=== PATIENT | female | born 1965 | race Caucasian/White ===

== ENCOUNTER 2017-02-04 13:00 | Outpatient (CLI) | payer SELFPAY | END 2017-02-04 13:01 | disposition home or self-care (01) | LOC: BICMRI 13:00 | PROVIDERS: ATTEND Orthopaedic Surgery | DX: M47.892 Other spondylosis, cervical region (principal); M54.2 Cervicalgia | CPT/HCPCS: 72141 ==

== ENCOUNTER 2018-02-22 09:27 | Emergency (ER) | payer BC ==
[2018-02-22 10:03] LABS: Bilirubin Negative (Negative); Blood, Urine Negative (Negative); Clarity CLEAR (Clear); Glucose, Urine (Dipstick) Negative (Negative); Leukocyte Negative (Negative); Nitrite Negative (Negative); Protein, Urine (Dipstick) Negative (Neg-Trace); Specific Gravity, Urine 1.012 (1.002-1.036); Urobilinogen 0.2 mg/dL (0.2-1.0)
[2018-02-22 10:27] LABS: #Basophils 0.1 thou/uL (0.0-0.2); #Eosinphils 0.3 thou/uL (0.0-0.7); #Lymphocytes 2.8 thou/uL (1.20-3.40); #Monocytes 0.4 thou/uL (0.11-0.59); #Neutrophils 4.4 thou/uL (1.40-6.50); %Basophils 0.7 % (0.0-1.0); %Eosinophils 3.3 % (0.0-10.0); %Lymphocytes 35.2 % (21.0-51.0); %Monocytes 5.4 % (0.0-10.0); %Neutrophils 55.3 % (42.0-75.0); Hemoglobin 15.8 g/dL (12.0-16.0); Mean Corpuscular HGB CONC 35.2 g/dL (32.0-36.0); Mean Corpuscular Hemoglobin 32.7 pg (27.0-31.0); Mean Corpuscular Volume 92.9 fL (78.0-98.0); Mean Platelet Volume 6.5 fL (7.4-10.4); Platelet Count 316 thou/uL (130-400); RBC Distribution Width 11.6 % (11.5-14.5); Red Blood Cell (RBC) Count 4.84 mill/uL (4.20-5.40); White Blood Cell (WBC) Count 7.9 thou/uL (4.8-10.8)
[2018-02-22] MEDS ORDERED: Ketorolac Tromethamine 30 MG/ML VIAL ONE (10:37)
[2018-02-22] MEDS ORDERED: Ondansetron PF 4 MG/2 ML Vial ONE (10:37)
[2018-02-22 10:48] LABS: ALT (SGPT) 17 U/L (8-55); AST (SGOT) 19 U/L (5-34); Albumin 4.2 g/dL (3.5-5.0); Alkaline Phosphatase 62 U/L (40-150); Anion Gap 13 mmol/L (10-20); BUN (Urea Nitrogen) 16 mg/dL (7.0-18.7); Bilirubin, Total 0.4 mg/dL (0.2-1.2); Calc. Creatinine Clearance 0 mL/min (70-130); Calcium 8.9 mg/dL (7.8-10.44); Carbon Dioxide 22 mmol/L (22-29); Chloride 109 mmol/L (98-107); Estimated GFR-MDRD 73; Globulin 2.7 g/dL (2.4-3.5); Glucose 84 mg/dL (70-105); Lipase 73 U/L (8-78); Protein, Total 6.9 g/dL (6.0-8.3); Sodium 140 mmol/L (136-145)
[2018-02-22 11:15] LABS: Pregnancy Test - Urine (BHCG) Negative (Negative)
[2018-02-22 11:16] LABS: Pregu Control Background? CLEAR/WHITE (CLR/WHITE); Pregu Control Bar Appear? YES (CONTROL BAR); Specific Gravity 1.012 (1.002-1.036)
--- NOTE | 2018-02-22 12:10 | CT ---
ABDOMEN AND PELVIC CT SCAN WITH IV CONTRAST: History: 52-year-old female with bilateral flank pain and left lower quadrant tenderness for five days. FINDINGS: The lung bases are clear. Post op changes involving the stomach, evidence for prior bariatric surgery . Status post cholecystectomy. Liver, pancreas, spleen, adrenal glands are unremarkable. No evidence for renal calculus or acute obstruction. Very small fat containing umbilical hernia. Normal appear ing appendix. IMPRESSION: No renal calculus or obstruction. Normal appearing appendix. No evidence for other significant acu te process in the abdomen or pelvis. POS: [facility]
== END 2018-02-22 12:38 | disposition home or self-care (01) ==
LOC: ERS 09:27
DX: R10.9 Unspecified abdominal pain (principal); E03.9 Hypothyroidism, unspecified; Z79.899 Other long term (current) drug therapy
CPT/HCPCS: 36415; 74177; 80053; 81003; 81025; 83690; 85025; 96361; 96374; 96375; J1885; J2405

== ENCOUNTER 2021-10-19 07:47 | Outpatient (CLI) | payer OTHER ==
[2021-10-19 09:56] LABS: #Basophils 0.1 10x3/uL (0.0-0.2); #Eosinphils 0.3 10x3/uL (0.0-0.5); #Monocytes 0.4 10x3/uL (0.0-1.1); #Neutrophils 2.8 10x3/uL (1.5-8.4); %Basophils 0.8 % (0.0-2.0); %Eosinophils 5.1 % (0.0-6.0); %Lymphocytes 38.9 % (18.0-47.0); %Monocytes 6.9 % (0.0-10.0); Hemoglobin 16.7 g/dL (12.0-15.5); Mean Corpuscular HGB CONC 35.2 g/dL (32.0-36.0); Mean Corpuscular Hemoglobin 33.2 pg (27.0-33.0); Mean Corpuscular Volume 94.4 fl (81.6-98.3); Mean Platelet Volume 9.6 fl (7.4-10.4); Platelet Count 296 10x3/uL (150-450); RBC Distribution Width 12.1 % (11.5-14.5); Red Blood Cell (RBC) Count 5.03 10x6/uL (3.90-5.03); White Blood Cell (WBC) Count 5.9 10x3/uL (3.5-10.5)
[2021-10-19 10:24] LABS: Anion Gap 14 mmol/L (10-20); BUN (Urea Nitrogen) 13 mg/dL (9.8-20.1); Calc. Creatinine Clearance 0 mL/min (70-130); Calcium 9.3 mg/dL (7.8-10.44); Carbon Dioxide 24 mmol/L (22-29); Chloride 108 mmol/L (98-107); Estimated GFR 70; Glucose 89 mg/dL (70-105); Potassium 4.4 mmol/L (3.5-5.1); Sodium 142 mmol/L (136-145)
== END 2021-10-19 07:48 | disposition home or self-care (01) ==
LOC: LABBT 07:47
PROVIDERS: ATTEND Surgery
DX: Z01.812 Encounter for preprocedural laboratory examination (principal); K43.2 Incisional hernia without obstruction or gangrene; Z20.822 Contact with and (suspected) exposure to COVID-19
CPT/HCPCS: 80048; 85025; 87811

== ENCOUNTER 2021-10-22 06:09 | Day surgery (SDC) | payer OTHER ==
[2021-10-20 13:24] VITALS: BMI 32.8
[2021-10-22] MEDS ORDERED: Bupivacaine/Epinephrine 0.25% 30 ML VIAL ONE (06:41)
[2021-10-22] MEDS ORDERED: Midazolam HCl 2 mg/2 ml Vial ONE (07:07)
[2021-10-22] MEDS ORDERED: Famotidine/PF 20 mg/2ml Vial ONE (07:07)
[2021-10-22] MEDS ORDERED: CEFAZOLIN 2 GM VIAL ONE (07:26)
[2021-10-22] MEDS ORDERED: fentaNYL Citrate/PF 100 MCG/2 ML SYRINGE ONE (07:26)
[2021-10-22] MEDS ORDERED: Sodium Chloride 0.9% 100 ML ONE (07:26)
[2021-10-22] MEDS ORDERED: SUGAMMADEX SODIUM 200 MG/2 ML VIAL ONE (07:26)
[2021-10-22] MEDS ORDERED: Ketorolac Tromethamine 30 MG/ML VIAL ONE (07:47)
[2021-10-22] MEDS ORDERED: Dexamethasone 20 MG/5 ML VIAL ONE (07:47)
[2021-10-22] MEDS ORDERED: Rocuronium Bromide 10 MG/ML (10ML VIAL) ONE (07:47)
[2021-10-22] MEDS ORDERED: Lidocaine 1% MPF 2 ML VIAL ONE (07:47)
[2021-10-22] MEDS ORDERED: PROPOFOL 200 MG/20 ML VIAL ONE (07:47)
[2021-10-22] MEDS ORDERED: Ondansetron PF 4 MG/2 ML Vial ONE (07:47)
[2021-10-22] MEDS ORDERED: Fentanyl 100 MCG/2 ML VIAL ONE ×3 (09:12→09:53)
[2021-10-22] MEDS ORDERED: HYDROcodone/Acetaminophen 5/325 mg Tablet ONE (10:39)
== END 2021-10-22 11:14 | disposition home or self-care (01) ==
LOC: SDC 06:09
PROVIDERS: ATTEND Surgery
PROC: 0WUF4JZ Supplement Abdominal Wall with Synthetic Substitute, Percutaneous Endoscopic Approach (ICD-10-PCS; principal; 2021-10-22)
PROC: 8E0W4CZ Robotic Assisted Procedure of Trunk Region, Percutaneous Endoscopic Approach (ICD-10-PCS; principal; 2021-10-22)
DX: K43.2 Incisional hernia without obstruction or gangrene (principal); E03.9 Hypothyroidism, unspecified; K21.9 Gastro-esophageal reflux disease without esophagitis; Z79.890 Hormone replacement therapy; Z79.899 Other long term (current) drug therapy; Z88.1 Allergy status to other antibiotic agents; Z88.2 Allergy status to sulfonamides
CPT/HCPCS: C1781; J0690; J1100; J1885; J2250; J2405; J2704; J3010; J3490; S0028

== ENCOUNTER 2023-02-01 08:19 | Outpatient (CLI) | payer OTHER | END 2023-02-01 08:20 | disposition home or self-care (01) | LOC: RAD 08:19 | PROVIDERS: ATTEND Internal Medicine Critical Care Medicine | DX: R06.00 Dyspnea, unspecified (principal) | CPT/HCPCS: 71046 ==